=== PATIENT | male | born 1975 | race Caucasian/White ===

== ENCOUNTER 2018-11-18 19:41 | Emergency (ER) | payer OTHER ==
[~2018-11-18] VITALS: Ht 185.4 cm; Wt 102.0 kg
[2018-11-18 19:59] VITALS: BP 136/82; PULSE 84; RESP 16; Ht 185.4 cm; Wt 102.0 kg
[2018-11-18] MEDS ORDERED: LIDOCAINE 1%/EPI (MDV) 50 ML INJ INJ ONE (21:30)
[2018-11-18] MEDS ORDERED: LIDOCAINE 1%/EPI 30 ML INJ INJ ONE (21:30)
== END 2018-11-18 22:17 | disposition home or self-care (01) ==
LOC: FTE 19:41
DX: I83.892 Varicose veins of left lower extremity with other complications (principal); I83.92 Asymptomatic varicose veins of left lower extremity
CPT/HCPCS: 12001; Z7502; Z7610